=== PATIENT | female | born 1955 | race Caucasian/White ===

== ENCOUNTER 2019-07-09 20:08 | Observation (INO) | payer OTHER ==
[~2019-07-09] VITALS: Ht 162.6 cm; Wt 86.2 kg
[2019-07-09 21:32] LABS: BASOPHILS ABSOLUTE AUTO 0.05 K/mm3 (0.00-0.23); BASOPHILS PERCENT AUTO 1 % (0-2); EOSINOPHILS ABSOLUTE AUTO 0.09 K/mm3 (0.00-0.68); EOSINOPHILS PERCENT AUTO 1 % (0-6); Hematocrit 36.2 % (33.0-51.0); Hemoglobin 12.1 g/dL (11.5-16.0); IMMATURE GRAN ABSOLUTE AUTO 0.03 K/mm3 (0.00-0.10); IMMATURE GRAN PERCENT AUTO 0 % (0-1); LYMPHOCYTES ABSOLUTE AUTO 3.13 K/mm3 (0.84-5.20); LYMPHOCYTES PERCENT AUTO 45 % (21-46); MONOCYTES ABSOLUTE AUTO 0.58 K/mm3 (0.16-1.47); MONOCYTES PERCENT AUTO 8 % (4-13); Mean Corpuscular HGB 31.3 pg (26.0-34.0); Mean Corpuscular HGB Conc 33.4 g/dL (31.5-36.5); Mean Corpuscular Volume 94 fL (80-100); NEUTROPHILS PERCENT AUTO 45 % (41-73); Platelet Count 234 K/mm3 (150-400); RDW Coefficient Variation 13.4 % (11.7-14.2); RDW Standard Deviation 45.6 fL (35.1-46.3); Red Blood Cell Count 3.86 M/mm3 (3.80-5.20); White Blood Cell Count 6.98 K/mm3 (4.00-11.30)
[2019-07-09 21:54] LABS: Alanine Aminotransfer (ALT/SGP 13 U/L (12-78); Albumin, Blood 3.6 g/dL (3.4-5.0); Alk Phos 60 U/L (50-136); Anion Gap 12 mmol/L (6-16); Aspartate Aminotrans (AST/SGOT 17 U/L (12-37); Bilirubin, Total 0.3 mg/dL (0.1-1.0); Blood Urea Nitrogen 7 mg/dL (8-24); Bun/Creatinine Ratio 9.5 (12.0-20.0); CO2, Blood 20 mmol/L (21-32); Calcium, Blood 8.1 mg/dL (8.5-10.1); Chloride, Blood 105 mmol/L (98-108); Creatinine, Blood 0.74 mg/dL (0.40-1.00); Ethanol (Alcohol), Blood, Med 208 mg/dL; Globulin, Blood 3.7 g/dL (2.2-4.0); Glomerular Filtration Rate >60 (60-); Glucose, Blood 110 mg/dL (70-99); Potassium, Blood 4.4 mmol/L (3.5-5.5); Salicylate 4.1 mg/dL (2.8-20.0); Sodium, Blood 137 mmol/L (136-145); Total Protein, Blood 7.3 g/dL (6.4-8.2)
[2019-07-09 22:00] LABS: Acetaminophen, Random <2.0 ug/mL (10.0-30.0)
[2019-07-09] MEDS ORDERED: BUDE6HFA (22:57)
[2019-07-09] MEDS ORDERED: ALBU90OI INH (22:58)
[2019-07-10 00:02] LABS: Source, Urine Clean Catch
[2019-07-10 00:06] LABS: Bilirubin, Urine Neg (Neg); Blood, Urine Neg (Neg); Glucose Qualitative, Urine Neg (Neg); Ketones, Urine Neg (Neg); Leukocyte Esterase, Urine 2+ (Neg); Nitrite, Urine Neg (Neg); Protein, Urine Neg (Neg); Urobilinogen, Urine NORM (Normal)
[2019-07-10 00:09] LABS: Appearance, Urine Clear (Clear); Color, Urine Yellow (P-Yellow)
[2019-07-10 00:11] LABS: Red Blood Cells, Urine 0-2 /hpf (0-2); Squamous Epithelial Cells Few /hpf (Few)
[2019-07-10 00:12] LABS: Bacteria Few /hpf
[2019-07-10 00:16] LABS: U Amphetamine Screen Not Detected; U Barbituate Screen Not Detected; U Benzodiazapine Screen Not Detected; U Buprenorphine Screen Not Detected; U Cannabinoids Screen Not Detected; U Cocaine Screen Not Detected; U Methadone Screen Not Detected; U Methamphetamine Screen Not Detected; U Opiates Screen Not Detected; U Oxycodone Screen Not Detected; U Phencyclidine Screen Not Detected; U Propoxyphene Screen Not Detected
[2019-07-11] MEDS ORDERED: FLUO10 PO (11:21)
[2019-07-11] MEDS ORDERED: LEVSOD25 PO (11:21)
[2019-07-11] MEDS ORDERED: CYCL10 PO (11:21)
[2019-07-11] MEDS ORDERED: METO100ER PO (11:22)
[2019-07-11] MEDS ORDERED: BUDE10.22 INH (11:26)
== END 2019-07-11 11:00 | disposition home or self-care (01) ==
LOC: ER 20:08 → EOR 20:09
PROVIDERS: ADMIT Emergency Medicine
DX: F33.2 Major depressive disorder, recurrent severe without psychotic features (principal); F17.210 Nicotine dependence, cigarettes, uncomplicated
CPT/HCPCS: 80053; 81001; 81025; 84443; 85025; 87086; 94640; 96372; 99285-25; G0378; G0480; J1200; J1630; J2060; Q3014

== ENCOUNTER 2020-03-12 06:45 | Day surgery (SDC) | payer OTHER ==
[~2020-03-12 06:45] MED LIST: ALBU90OI INH; BUDE10.22 INH; BUDE6HFA; CYCL10 PO; FLUO10 PO; LEVSOD25 PO; METO100ER PO
== END 2020-03-12 22:40 | disposition home or self-care (01) ==
LOC: MOI US 06:45 → US 07:15 → MOI US 07:15 → MOI MAM 08:00 → MOI US 08:00 → MOI MAM 08:45 → MOI US 09:00
DX: C50.911 Malignant neoplasm of unspecified site of right female breast (principal)
CPT/HCPCS: 19285; 77065

== ENCOUNTER 2020-09-15 19:38 | Emergency (ER) | payer OTHER ==
[~2020-09-15] VITALS: Ht 157.5 cm; Wt 102.1 kg
[2020-09-15 20:00] LABS: BASOPHILS ABSOLUTE AUTO 0.03 K/mm3 (0.00-0.23); BASOPHILS PERCENT AUTO 0 % (0-2); EOSINOPHILS PERCENT AUTO 1 % (0-6); Hematocrit 36.7 % (33.0-51.0); Hemoglobin 12.1 g/dL (11.5-16.0); IMMATURE GRAN ABSOLUTE AUTO 0.03 K/mm3 (0.00-0.10); IMMATURE GRAN PERCENT AUTO 0 % (0-1); LYMPHOCYTES ABSOLUTE AUTO 1.93 K/mm3 (0.84-5.20); LYMPHOCYTES PERCENT AUTO 25 % (21-46); MONOCYTES PERCENT AUTO 12 % (4-13); Mean Corpuscular HGB 31.4 pg (26.0-34.0); Mean Corpuscular Volume 95 fL (80-100); Mean Platelet Volume 9.5 fL (9.1-12.4); NEUTROPHILS PERCENT AUTO 62 % (41-73); Platelet Count 177 K/mm3 (150-400); RDW Standard Deviation 52.1 fL (35.1-46.3); Red Blood Cell Count 3.85 M/mm3 (3.80-5.20); White Blood Cell Count 7.79 K/mm3 (4.00-11.30)
[2020-09-15 20:16] LABS: Alanine Aminotransfer (ALT/SGP 23 U/L (12-78); Albumin, Blood 3.5 g/dL (3.4-5.0); Alk Phos 71 U/L (50-136); Anion Gap 11 mmol/L (6-16); Aspartate Aminotrans (AST/SGOT 20 U/L (12-37); Bilirubin, Total 0.3 mg/dL (0.1-1.0); Blood Urea Nitrogen 12 mg/dL (8-24); Bun/Creatinine Ratio 16.7 (12.0-20.0); CO2, Blood 21 mmol/L (21-32); Chloride, Blood 107 mmol/L (98-108); Creatinine, Blood 0.72 mg/dL (0.40-1.00); Ethanol (Alcohol), Blood, Med 290 mg/dL; Globulin, Blood 3.6 g/dL (2.2-4.0); Glomerular Filtration Rate >60 (60-); Glucose, Blood 104 mg/dL (70-99); Potassium, Blood 3.6 mmol/L (3.5-5.5); Salicylate 4.7 mg/dL (2.8-20.0); Sodium, Blood 139 mmol/L (136-145); Total Protein, Blood 7.1 g/dL (6.4-8.2)
[2020-09-15 20:19] LABS: Acetaminophen, Random <2.0 ug/mL (10.0-30.0)
[2020-09-15 21:20] LABS: Source, Urine Catheter
[2020-09-15 21:22] LABS: Bilirubin, Urine Neg (Neg); Blood, Urine Neg (Neg); Glucose Qualitative, Urine Neg (Neg); Ketones, Urine Neg (Neg); Leukocyte Esterase, Urine Neg (Neg); Nitrite, Urine Neg (Neg); Protein, Urine Neg (Neg); Urobilinogen, Urine NORM (Normal)
[2020-09-15 21:31] LABS: Appearance, Urine Clear (Clear); Color, Urine Yellow (P-Yellow)
[2020-09-15 21:33] LABS: U Amphetamine Screen Not Detected; U Barbituate Screen Not Detected; U Benzodiazapine Screen Not Detected; U Buprenorphine Screen Not Detected; U Cannabinoids Screen Not Detected; U Cocaine Screen Not Detected; U Methadone Screen Not Detected; U Methamphetamine Screen Not Detected; U Opiates Screen Not Detected; U Oxycodone Screen Not Detected; U Phencyclidine Screen Not Detected; U Propoxyphene Screen Not Detected
== END 2020-09-15 22:08 | disposition home or self-care (01) ==
LOC: ER 19:38
PROVIDERS: Emergency Medicine
DX: F10.129 Alcohol abuse with intoxication, unspecified (principal); F32.9 Major depressive disorder, single episode, unspecified; I10 Essential (primary) hypertension; E03.9 Hypothyroidism, unspecified; J45.909 Unspecified asthma, uncomplicated; Z88.5 Allergy status to narcotic agent; Z79.51 Long term (current) use of inhaled steroids; Z79.899 Other long term (current) drug therapy
CPT/HCPCS: 36415; 70450; 80053; 81003; 85025; 99284-25; G0480; P9612

== ENCOUNTER 2020-12-22 20:51 | Emergency (ER) | payer MEDICARE, OTHER ==
[~2020-12-22] VITALS: Ht 162.6 cm; Wt 90.7 kg
[2020-12-22 21:51] LABS: BASOPHILS ABSOLUTE AUTO 0.04 K/mm3 (0.00-0.23); BASOPHILS PERCENT AUTO 1 % (0-2); EOSINOPHILS PERCENT AUTO 1 % (0-6); Hematocrit 41.6 % (33.0-51.0); Hemoglobin 14.3 g/dL (11.5-16.0); IMMATURE GRAN ABSOLUTE AUTO 0.03 K/mm3 (0.00-0.10); IMMATURE GRAN PERCENT AUTO 0 % (0-1); LYMPHOCYTES ABSOLUTE AUTO 2.63 K/mm3 (0.84-5.20); LYMPHOCYTES PERCENT AUTO 36 % (21-46); MONOCYTES PERCENT AUTO 11 % (4-13); Mean Corpuscular HGB 32.2 pg (26.0-34.0); Mean Corpuscular HGB Conc 34.4 g/dL (31.5-36.5); Mean Corpuscular Volume 94 fL (80-100); Mean Platelet Volume 9.6 fL (9.1-12.4); NEUTROPHILS ABSOLUTE AUTO 3.75 K/mm3 (1.96-9.15); NEUTROPHILS PERCENT AUTO 51 % (41-73); Platelet Count 235 K/mm3 (150-400); RDW Coefficient Variation 13.7 % (11.7-14.2); RDW Standard Deviation 47.6 fL (35.1-46.3); Red Blood Cell Count 4.44 M/mm3 (3.80-5.20); White Blood Cell Count 7.35 K/mm3 (4.00-11.30)
[2020-12-22 22:03] LABS: Alanine Aminotransfer (ALT/SGP 48 U/L (12-78); Albumin, Blood 3.8 g/dL (3.4-5.0); Albumin/Globulin Ratio 0.9 (0.8-1.8); Alk Phos 59 U/L (50-136); Anion Gap 15 mmol/L (6-16); Aspartate Aminotrans (AST/SGOT 32 U/L (12-37); Bilirubin, Total 0.4 mg/dL (0.1-1.0); Blood Urea Nitrogen 8 mg/dL (8-24); CO2, Blood 16 mmol/L (21-32); Calcium, Blood 9.2 mg/dL (8.5-10.1); Chloride, Blood 101 mmol/L (98-108); Creatinine, Blood 0.61 mg/dL (0.40-1.00); Globulin, Blood 4.1 g/dL (2.2-4.0); Glomerular Filtration Rate >60 (60-); Glucose, Blood 107 mg/dL (70-99); Magnesium, Blood 2.2 mg/dL (1.6-2.4); Potassium, Blood 3.7 mmol/L (3.5-5.5); Sodium, Blood 132 mmol/L (136-145); Total Protein, Blood 7.9 g/dL (6.4-8.2)
== END 2020-12-22 23:49 | disposition home or self-care (01) ==
LOC: ER 20:51
PROVIDERS: Physician Assistant
DX: M25.552 Pain in left hip (principal); I10 Essential (primary) hypertension; E03.9 Hypothyroidism, unspecified; J45.909 Unspecified asthma, uncomplicated; F17.210 Nicotine dependence, cigarettes, uncomplicated
CPT/HCPCS: 36415; 72100; 73522; 80053; 83735; 85025; 96374; 96375; 99284-25; A9270; J1170; J1885; J2405; J7030

== ENCOUNTER 2021-12-05 19:42 | Observation (INO) | payer MEDICARE, OTHER ==
[~2021-12-05] VITALS: Ht 165.1 cm; Wt 88.5 kg
[2021-12-05 20:24] LABS: BASOPHILS ABSOLUTE AUTO 0.06 K/mm3 (0.00-0.23); BASOPHILS PERCENT AUTO 1 % (0-2); EOSINOPHILS PERCENT AUTO 5 % (0-6); Hematocrit 37.8 % (33.0-51.0); Hemoglobin 12.6 g/dL (11.5-16.0); IMMATURE GRAN ABSOLUTE AUTO 0.04 K/mm3 (0.00-0.10); IMMATURE GRAN PERCENT AUTO 1 % (0-1); LYMPHOCYTES ABSOLUTE AUTO 2.51 K/mm3 (0.84-5.20); LYMPHOCYTES PERCENT AUTO 29 % (21-46); MONOCYTES ABSOLUTE AUTO 0.67 K/mm3 (0.16-1.47); MONOCYTES PERCENT AUTO 8 % (4-13); Mean Corpuscular HGB Conc 33.3 g/dL (31.5-36.5); Mean Corpuscular Volume 93 fL (80-100); Mean Platelet Volume 11.6 fL (9.1-12.4); NEUTROPHILS ABSOLUTE AUTO 5.03 K/mm3 (1.96-9.15); NEUTROPHILS PERCENT AUTO 58 % (41-73); Platelet Count 188 K/mm3 (150-400); RDW Coefficient Variation 14.2 % (11.7-14.2); RDW Standard Deviation 48.6 fL (35.1-46.3); Red Blood Cell Count 4.06 M/mm3 (3.80-5.20); White Blood Cell Count 8.71 K/mm3 (4.00-11.30)
[2021-12-05 20:42] LABS: Ethanol (Alcohol), Blood, Med 126 mg/dL; Salicylate 3.3 mg/dL (2.8-20.0)
[2021-12-05 20:49] LABS: Acetaminophen, Random <2.0 ug/mL (10.0-30.0); Alanine Aminotransfer (ALT/SGP 22 U/L (12-78); Albumin, Blood 3.2 g/dL (3.4-5.0); Albumin/Globulin Ratio 0.9 (0.8-1.8); Alk Phos 56 U/L (50-136); Anion Gap 7 mmol/L (6-16); Aspartate Aminotrans (AST/SGOT 32 U/L (12-37); Bilirubin, Total 0.4 mg/dL (0.1-1.0); Blood Urea Nitrogen 8 mg/dL (8-24); Bun/Creatinine Ratio 12.8 (12.0-20.0); CO2, Blood 20 mmol/L (21-32); Calcium, Blood 8.3 mg/dL (8.5-10.1); Chloride, Blood 106 mmol/L (98-108); Creatinine, Blood 0.63 mg/dL (0.40-1.00); Globulin, Blood 3.6 g/dL (2.2-4.0); Glomerular Filtration Rate >60 (60-); Glucose, Blood 106 mg/dL (70-99); Sodium, Blood 133 mmol/L (136-145); Total Protein, Blood 6.8 g/dL (6.4-8.2)
[2021-12-05 21:07] LABS: Source, Urine Clean Catch
[2021-12-05 21:13] LABS: Appearance, Urine Clear (Clear); Bilirubin, Urine Neg (Neg); Blood, Urine Neg (Neg); Glucose Qualitative, Urine Neg (Neg); Ketones, Urine Neg (Neg); Leukocyte Esterase, Urine Neg (Neg); Nitrite, Urine Neg (Neg); Protein, Urine Neg (Neg); Urobilinogen, Urine NORM (Normal)
[2021-12-05 21:25] LABS: Color, Urine Pale Yellow (P-Yellow); U Amphetamine Screen Not Detected; U Barbituate Screen Not Detected; U Benzodiazapine Screen Not Detected; U Buprenorphine Screen Not Detected; U Cannabinoids Screen Not Detected; U Cocaine Screen Not Detected; U Methadone Screen Not Detected; U Methamphetamine Screen Not Detected; U Opiates Screen Not Detected; U Oxycodone Screen Not Detected; U Phencyclidine Screen Not Detected; U Propoxyphene Screen Not Detected
[2021-12-05 22:04] LABS: Adenovirus Not Detected (NOT DETECT); Bordetella pertussis Not Detected (NOT DETECT); Chlamydophila pneumoniae Not Detected (NOT DETECT); Coronavirus 229E Not Detected (NOT DETECT); Coronavirus HKU1 Not Detected (NOT DETECT); Coronavirus NL63 Not Detected (NOT DETECT); Coronavirus OC43 Not Detected (NOT DETECT); Human Metapneumovirus Not Detected (NOT DETECT); Human Rhinovirus/Enterovirus Not Detected (NOT DETECT); Influenza A/2009-H1 Not Detected (NOT DETECT); Influenza A/H1 Not Detected (NOT DETECT); Influenza A/H3 Not Detected (NOT DETECT); Influenza B Not Detected (NOT DETECT); Mycoplasma pneumoniae Not Detected (NOT DETECT); Parainfluenza Virus 1 Not Detected (NOT DETECT); Parainfluenza Virus 2 Not Detected (NOT DETECT); Parainfluenza Virus 3 Not Detected (NOT DETECT); Parainfluenza Virus 4 Not Detected (NOT DETECT); Respiratory Syncytial Virus Not Detected (NOT DETECT); SARS-Cov-2 (COVID-19), BioFire Not Detected (NOT DETECT)
== END 2021-12-06 15:51 ==
LOC: ER 19:42 → EOR 19:43
PROVIDERS: ADMIT Emergency Medicine
DX: F33.9 Major depressive disorder, recurrent, unspecified (principal); T43.222A Poisoning by selective serotonin reuptake inhibitors, intentional self-harm, initial encounter; I10 Essential (primary) hypertension; E03.9 Hypothyroidism, unspecified; J45.909 Unspecified asthma, uncomplicated; E87.1 Hypo-osmolality and hyponatremia; F17.210 Nicotine dependence, cigarettes, uncomplicated; Z88.5 Allergy status to narcotic agent; Z20.822 Contact with and (suspected) exposure to COVID-19
CPT/HCPCS: 0202U; 51701; 80053; 81003; 85025; 93005; 93010; 99285-25; G0378; G0480; Q3014

== ENCOUNTER 2022-04-10 21:18 | Emergency (ER) | payer OTHER, MEDICARE ==
[~2022-04-10] VITALS: Ht 167.6 cm; Wt 81.7 kg
== END 2022-04-11 00:08 | disposition home or self-care (01) ==
LOC: ER 21:18
DX: S96.912A Strain of unspecified muscle and tendon at ankle and foot level, left foot, initial encounter (principal); S70.02XA Contusion of left hip, initial encounter; F10.129 Alcohol abuse with intoxication, unspecified; J45.909 Unspecified asthma, uncomplicated; E03.9 Hypothyroidism, unspecified; I10 Essential (primary) hypertension; F41.8 Other specified anxiety disorders; Z79.899 Other long term (current) drug therapy; Z88.5 Allergy status to narcotic agent; Z72.0 Tobacco use; W18.30XA Fall on same level, unspecified, initial encounter; Y92.511 Restaurant or cafe as the place of occurrence of the external cause
CPT/HCPCS: 73502; 73610; 99283-25

== ENCOUNTER 2022-12-21 14:26 | Emergency (ER) | payer MEDICARE, OTHER ==
[~2022-12-21] VITALS: Ht 167.6 cm; Wt 74.8 kg
[2022-12-21 15:25] LABS: BASOPHILS ABSOLUTE AUTO 0.04 K/mm3 (0.00-0.23); BASOPHILS PERCENT AUTO 0 % (0-2); EOSINOPHILS PERCENT AUTO 2 % (0-6); Hematocrit 36.9 % (33.0-51.0); Hemoglobin 12.6 g/dL (11.5-16.0); IMMATURE GRAN ABSOLUTE AUTO 0.04 K/mm3 (0.00-0.10); IMMATURE GRAN PERCENT AUTO 0 % (0-1); LYMPHOCYTES ABSOLUTE AUTO 1.22 K/mm3 (0.84-5.20); LYMPHOCYTES PERCENT AUTO 13 % (21-46); MONOCYTES ABSOLUTE AUTO 0.74 K/mm3 (0.16-1.47); MONOCYTES PERCENT AUTO 8 % (4-13); Mean Corpuscular HGB 29.9 pg (26.0-34.0); Mean Corpuscular HGB Conc 34.1 g/dL (31.5-36.5); Mean Corpuscular Volume 87 fL (80-100); Mean Platelet Volume 10.9 fL (9.1-12.4); NEUTROPHILS PERCENT AUTO 77 % (41-73); Platelet Count 232 K/mm3 (150-400); Red Blood Cell Count 4.22 M/mm3 (3.80-5.20); White Blood Cell Count 9.74 K/mm3 (4.00-11.30)
[2022-12-21 15:42] LABS: Albumin, Blood 3.5 g/dL (3.4-5.0); Bilirubin, Total 0.3 mg/dL (0.1-1.0); Bun/Creatinine Ratio 14.3 (12.0-20.0); Calcium, Blood 9.5 mg/dL (8.5-10.1); Creatinine, Blood 0.91 mg/dL (0.40-1.00); Globulin, Blood 3.6 g/dL (2.2-4.0); Potassium, Blood 3.6 mmol/L (3.5-5.5); Total Protein, Blood 7.1 g/dL (6.4-8.2)
[2022-12-21] MEDS ORDERED: AMOCLA875 PO (16:47)
[2022-12-21] MEDS ORDERED: ONDA4 PO (16:47)
== END 2022-12-21 17:18 | disposition home or self-care (01) ==
LOC: ER 14:26
PROVIDERS: Emergency Medicine
DX: J44.1 Chronic obstructive pulmonary disease with (acute) exacerbation (principal); K52.9 Noninfective gastroenteritis and colitis, unspecified; I10 Essential (primary) hypertension; E03.9 Hypothyroidism, unspecified; F17.210 Nicotine dependence, cigarettes, uncomplicated; Z88.5 Allergy status to narcotic agent; Z79.890 Hormone replacement therapy; Z79.899 Other long term (current) drug therapy
CPT/HCPCS: 36415; 74176; 80053; 83690; 85025; 94640; 94664; A9270

== ENCOUNTER 2023-06-19 12:58 | Emergency (ER) | payer MEDICARE, OTHER ==
[~2023-06-19] VITALS: Ht 162.6 cm; Wt 90.3 kg
[~2023-06-19 12:58] MED LIST changes: +AMOCLA875 PO; +ONDA4 PO
[2023-06-19 15:33] VITALS: BP 122/72
[2023-06-19] MEDS ORDERED: GABA300 PO (16:04)
[2023-06-19] MEDS ORDERED: HYDR1TAB94 PO (16:04)
[2023-06-19] MEDS ORDERED: METPRE4DP PO (16:04)
== END 2023-06-19 17:15 | disposition home or self-care (01) ==
LOC: ER 12:58
DX: M54.17 Radiculopathy, lumbosacral region (principal); F17.210 Nicotine dependence, cigarettes, uncomplicated; Z88.5 Allergy status to narcotic agent; Z79.890 Hormone replacement therapy; Z79.899 Other long term (current) drug therapy; I10 Essential (primary) hypertension; E03.9 Hypothyroidism, unspecified
CPT/HCPCS: 72100; 96374; 96375; 99284-25; J1100; J1885; J3010

== ENCOUNTER 2024-05-24 14:09 | Emergency (ER) | payer MEDICARE, OTHER ==
[~2024-05-24] VITALS: Ht 162.6 cm; Wt 93.0 kg
[~2024-05-24 14:09] MED LIST changes: +ASPI81CH PO; +BUDESONIDE-FO10.2 G3 IH; +CLOP75 PO; +EZET10 PO; +FOLI1 PO; +GABA300 PO; +HYDR1TAB94 PO; -LEVSOD25 PO; +LEVSOD75 PO; +LIPITOR80 MG PO; +METPRE4DP PO; +MIRTAZAPINE7.5 M1 PO; +TIZANIDINE HCL213 PO; +VENLAFAXINE HC225 MG PO
[2024-05-24 14:47] LABS: BASOPHILS ABSOLUTE AUTO 0.05 K/mm3 (0.00-0.23); BASOPHILS PERCENT AUTO 1 % (0-2); EOSINOPHILS PERCENT AUTO 6 % (0-6); Hematocrit 35.8 % (33.0-51.0); Hemoglobin 12.3 g/dL (11.5-16.0); IMMATURE GRAN ABSOLUTE AUTO 0.03 K/mm3 (0.00-0.10); IMMATURE GRAN PERCENT AUTO 0 % (0-1); LYMPHOCYTES ABSOLUTE AUTO 2.83 K/mm3 (0.84-5.20); LYMPHOCYTES PERCENT AUTO 31 % (21-46); MONOCYTES ABSOLUTE AUTO 0.76 K/mm3 (0.16-1.47); MONOCYTES PERCENT AUTO 8 % (4-13); Mean Corpuscular HGB 29.4 pg (26.0-34.0); Mean Corpuscular HGB Conc 34.4 g/dL (31.5-36.5); Mean Corpuscular Volume 85 fL (80-100); Mean Platelet Volume 10.3 fL (9.1-12.4); NEUTROPHILS PERCENT AUTO 55 % (41-73); Platelet Count 260 K/mm3 (150-400); RDW Coefficient Variation 14.2 % (11.7-14.2); RDW Standard Deviation 44.1 fL (35.1-46.3); Red Blood Cell Count 4.19 M/mm3 (3.80-5.20); White Blood Cell Count 9.17 K/mm3 (4.00-11.30)
[2024-05-24 15:19] LABS: Albumin, Blood 3.6 g/dL (3.4-5.0); Albumin/Globulin Ratio 0.9 (0.8-1.8); Bilirubin, Total 0.4 mg/dL (0.1-1.0); Bun/Creatinine Ratio 16.2 (12.0-20.0); Calcium, Blood 9.5 mg/dL (8.5-10.1); Creatinine, Blood 0.74 mg/dL (0.40-1.00); Globulin, Blood 3.9 g/dL (2.2-4.0); Potassium, Blood 4.1 mmol/L (3.5-5.5); Total Protein, Blood 7.5 g/dL (6.4-8.2)
[2024-05-24 17:20] VITALS: BP 141/84
== END 2024-05-24 18:42 | disposition home or self-care (01) ==
LOC: ER 14:09
PROVIDERS: Emergency Medicine
DX: R07.2 Precordial pain (principal); I10 Essential (primary) hypertension; I25.2 Old myocardial infarction; J45.909 Unspecified asthma, uncomplicated; E03.9 Hypothyroidism, unspecified; Z87.891 Personal history of nicotine dependence; Z79.899 Other long term (current) drug therapy; Z79.890 Hormone replacement therapy; Z79.82 Long term (current) use of aspirin; Z88.5 Allergy status to narcotic agent; Z88.8 Allergy status to other drugs, medicaments and biological substances
CPT/HCPCS: 71046; 80053; 84484; 85025; 93005; 93010; 99285-25

== ENCOUNTER 2024-09-21 15:38 | Observation (INO) | payer MEDICARE, OTHER ==
[~2024-09-21] VITALS: Ht 165.1 cm; Wt 94.3 kg
[2024-09-21] MEDS ORDERED: Nitroglycerin 0.4 MG SUBL SL ONE (17:50)
[2024-09-21 17:57] LABS: Albumin, Blood 3.3 g/dL (3.4-5.0); Albumin/Globulin Ratio 0.9 (0.8-1.8); Bilirubin, Total 0.4 mg/dL (0.1-1.0); Calcium, Blood 9.2 mg/dL (8.5-10.1); Creatinine, Blood 0.67 mg/dL (0.40-1.00); Globulin, Blood 3.5 g/dL (2.2-4.0); Potassium, Blood 3.8 mmol/L (3.5-5.5); Total Protein, Blood 6.8 g/dL (6.4-8.2)
[2024-09-21 18:07] LABS: BASOPHILS ABSOLUTE AUTO 0.06 K/mm3 (0.00-0.23); BASOPHILS PERCENT AUTO 1 % (0-2); EOSINOPHILS ABSOLUTE AUTO 0.23 K/mm3 (0.00-0.68); EOSINOPHILS PERCENT AUTO 3 % (0-6); Hemoglobin 11.7 g/dL (11.5-16.0); IMMATURE GRAN ABSOLUTE AUTO 0.08 K/mm3 (0.00-0.10); IMMATURE GRAN PERCENT AUTO 1 % (0-1); LYMPHOCYTES ABSOLUTE AUTO 1.67 K/mm3 (0.84-5.20); LYMPHOCYTES PERCENT AUTO 22 % (21-46); MONOCYTES ABSOLUTE AUTO 0.71 K/mm3 (0.16-1.47); MONOCYTES PERCENT AUTO 10 % (4-13); Mean Corpuscular HGB 30.2 pg (26.0-34.0); Mean Corpuscular HGB Conc 34.4 g/dL (31.5-36.5); Mean Corpuscular Volume 88 fL (80-100); NEUTROPHILS ABSOLUTE AUTO 4.69 K/mm3 (1.96-9.15); NEUTROPHILS PERCENT AUTO 63 % (41-73); NRBC ABSOLUTE 0.02 K/mm3 (0.00-0.02); NRBC Auto 0.3 /100 WBC (0.0-0.2); RDW Coefficient Variation 13.9 % (11.7-14.2); RDW Standard Deviation 44.4 fL (35.1-46.3); Red Blood Cell Count 3.88 M/mm3 (3.80-5.20); White Blood Cell Count 7.44 K/mm3 (4.00-11.30)
[2024-09-21] MEDS ORDERED: Albuterol 2.5 MG/3 ML VIAL INH PRN (19:50)
[2024-09-21] MEDS ORDERED: Metoprolol Succinate 50 MG TABCR PO SCH (21:00)
[2024-09-21] MEDS ORDERED: Mirtazapine 15 MG Tab PO SCH (21:00)
[2024-09-21] MEDS ORDERED: Ezetimibe 10 MG Tab PO SCH (21:00)
[2024-09-21] MEDS ORDERED: Ondansetron HCl 2 MG / ML 2ML Vial IV PRN (21:40)
[2024-09-21] MEDS ORDERED: Mometasone/Formoterol MDI 200/5 mcg 13 GM INH SCH (21:40)
[2024-09-21] MEDS ORDERED: FLU VACC TS2024-25(6MOS UP)/PF 45 MCG/0.5 ML SYRINGE IM ONE ×2 (21:45→23:00)
[2024-09-21] MEDS ORDERED: NS 1,000 ML IV SCH (21:45)
[2024-09-21 23:16] VITALS: BP 129/77
--- NOTE | 2024-09-21 23:33 | NUR ---
ADMIT NOTE 68 YR OLD FEMALE ADMITTED TO FLOOR FROM THE ED WITH DX OF CHEST PAIN. ED REPORTED PT CAME IN VIA AMBULANCE WITH 1:10 CP AND HAD RECEIEVD NITRO TWICE IN THE AMBULANCE AND ONCE IN THE ED. CP DECREASED, DID THE TROP LEVELS. DENIES CURRENT CP. ALERT AND OREINTED X 4. ORIENTED TO USE OF CALL LIGHT, AGREES TO USE IT IF NEED TO GET OOB. HANDS COOL TO TOUCH. WARM BLANKET APPLIED. VSS. TO BE PLACED ON [employer] AND PT NOW REQUESTS FULL CODE STATUS. WILL CALL MD WITH SAID REQUEST. CALL LIGHT IN REACH
[2024-09-21 23:41] VITALS: BP 130/77
[2024-09-22] MEDS ORDERED: CILOSTAZOL PO (00:12)
[2024-09-22] MEDS ORDERED: LETROZOLE2.5 M3 PO (00:20)
[2024-09-22] MEDS ORDERED: FLUTICASONE-SAL12 G1 INH (00:20)
[2024-09-22] MEDS ORDERED: FAMO20 PO (00:22)
[2024-09-22 03:55] VITALS: BP 103/53
--- NOTE | 2024-09-22 03:59 | NUR ---
ESCORT BLIND SUMMARY VSS. ADMITTED EARLIER IN THE SHIFT WITH DX OF CHEST PAIN FROM THE ED. HAS BEEN RESTING QUIETLY WITH FEW INTERRUPTIONS. IVF OF NS INFUSING AT 100 ML/HR. ORIENTED X 4 AND UP AITH ASSIST/WALKER. DENIED CHEST PAIN SINCE ADMISSION TO FLOOR. ABLE TO RSPOSITION SELF IN BED WITHOUT ASSIST FOR COMFORT. CALL LIGHT IN REACH, RAILS UP X 2 AND BED IN LOW POSITION FOR SAFETY. [place] SR AT 88. WILL CONTINUE TO MONITOR
[2024-09-22] MEDS ORDERED: Levothyroxine Sodium 0.075 MG Tab PO SCH (06:00)
[2024-09-22 07:19] VITALS: BP 118/75
[2024-09-22] MEDS ORDERED: Nicotine 21 MG PATCH TOP SCH (09:00)
[2024-09-22] MEDS ORDERED: Clopidogrel Bisulfate 75 MG Tab PO SCH (09:00)
[2024-09-22] MEDS ORDERED: Aspirin 81 MG Chew PO SCH (09:00)
[2024-09-22] MEDS ORDERED: Enoxaparin 40 MG/0.4 ML SYR SC SCH ×2 (09:00)
[2024-09-22] MEDS ORDERED: Venlafaxine HCl 75 MG CapCR PO SCH (09:00)
[2024-09-22] MEDS ORDERED: Atorvastatin 40 MG Tab PO SCH (09:00)
[2024-09-22] MEDS ORDERED: Imdur-ER60 MG PO (13:00)
[2024-09-22] MEDS ORDERED: NICO21TP TOP (13:00)
--- NOTE | 2024-09-22 13:54 | NUR ---
DISCHARGE NOTE: WENT OVER DISCHARGE WITH PATIENT. HER IV AND TELE WERE REMOVED. SHE WAS ABLE TO SELF TRANSFER TO WHEELCHAIR AND WAS WHEELED DOWN TO [facility] BY SECURITY SCREENER. NO SIGNS OR SYMPTOMS OF DISTRESS DURING DISCHARGE.
== END 2024-09-22 13:36 | disposition home or self-care (01) ==
LOC: ER 15:38 → ERHOLD 15:39 → ER 15:39 → MEDS 15:39 → ENPENDDIS 09-22 11:25 → MEDS 09-22 13:36
PROVIDERS: Emergency Medicine; ADMIT Student in an Organized Health Care Education/Training Program
DX: I25.118 Atherosclerotic heart disease of native coronary artery with other forms of angina pectoris (principal); I10 Essential (primary) hypertension; E03.9 Hypothyroidism, unspecified; F32.A Depression, unspecified; J45.909 Unspecified asthma, uncomplicated; Z88.5 Allergy status to narcotic agent; Z88.8 Allergy status to other drugs, medicaments and biological substances; Z79.82 Long term (current) use of aspirin; Z79.899 Other long term (current) drug therapy
CPT/HCPCS: 71046; 80053; 83690; 83880; 84484; 85025; 93005; 93010; 94640; 94664; 94760; 96360; 96361; 99285-25; A9270; G0378; J7030

== ENCOUNTER → 2024-12-22 | Outpatient (CLI) | payer MEDICARE, OTHER ==
[~2024-12-22] MED LIST changes: +CILOSTAZOL PO; +FAMO20 PO; +FLUTICASONE-SAL12 G1 INH; +Imdur-ER60 MG PO; +LETROZOLE2.5 M3 PO; +NICO21TP TOP
[2024-12-22 16:33] LABS: BASOPHILS ABSOLUTE AUTO 0.06 K/mm3 (0.00-0.23); BASOPHILS PERCENT AUTO 1 % (0-2); EOSINOPHILS ABSOLUTE AUTO 0.25 K/mm3 (0.00-0.68); EOSINOPHILS PERCENT AUTO 3 % (0-6); Hematocrit 37.3 % (33.0-51.0); Hemoglobin 12.5 g/dL (11.5-16.0); IMMATURE GRAN ABSOLUTE AUTO 0.03 K/mm3 (0.00-0.10); IMMATURE GRAN PERCENT AUTO 0 % (0-1); LYMPHOCYTES ABSOLUTE AUTO 2.14 K/mm3 (0.84-5.20); LYMPHOCYTES PERCENT AUTO 23 % (21-46); MONOCYTES ABSOLUTE AUTO 0.84 K/mm3 (0.16-1.47); MONOCYTES PERCENT AUTO 9 % (4-13); Mean Corpuscular HGB 29.8 pg (26.0-34.0); Mean Corpuscular HGB Conc 33.5 g/dL (31.5-36.5); Mean Corpuscular Volume 89 fL (80-100); Mean Platelet Volume 10.7 fL (9.1-12.4); NEUTROPHILS ABSOLUTE AUTO 6.04 K/mm3 (1.96-9.15); NEUTROPHILS PERCENT AUTO 65 % (41-73); Platelet Count 322 K/mm3 (150-400); RDW Coefficient Variation 13.9 % (11.7-14.2); RDW Standard Deviation 45.1 fL (35.1-46.3); White Blood Cell Count 9.36 K/mm3 (4.00-11.30)
[2024-12-22 20:52] LABS: Bun/Creatinine Ratio 14.6 (12.0-20.0); Calcium, Blood 10.3 mg/dL (8.5-10.1); Creatinine, Blood 0.75 mg/dL (0.40-1.00); Potassium, Blood 4.3 mmol/L (3.5-5.5)
[2024-12-24 08:33] LABS: HIV 1,2 COMBO ANTIGEN/ANTIBODY Negative (Negative)
== END ==
LOC: LAB 14:29 → LAB SHORT 14:29
PROVIDERS: Nurse Practitioner Family
DX: E53.8 Deficiency of other specified B group vitamins (principal); I10 Essential (primary) hypertension; R73.03 Prediabetes; Z11.4 Encounter for screening for human immunodeficiency virus [HIV]
CPT/HCPCS: 80048; 82607; 82746; 83036; 85025; 87389

== ENCOUNTER → 2025-06-22 | Outpatient (CLI) | payer MEDICARE, OTHER ==
[~2025-06-22] MED LIST changes: +ADVAIR HFA 230-28 GM INH; +B-121000 MC3 PO; +ISOSORBIDE MONO60 MG PO; +TIZANIDINE HCL2 M1 PO; +VITAMIN D5000 UNIT PO
[2025-06-22 17:36] LABS: BASOPHILS ABSOLUTE AUTO 0.06 K/mm3 (0.00-0.23); BASOPHILS PERCENT AUTO 1 % (0-2); EOSINOPHILS ABSOLUTE AUTO 0.38 K/mm3 (0.00-0.68); EOSINOPHILS PERCENT AUTO 4 % (0-6); Hematocrit 35.1 % (33.0-51.0); Hemoglobin 11.6 g/dL (11.5-16.0); IMMATURE GRAN ABSOLUTE AUTO 0.02 K/mm3 (0.00-0.10); IMMATURE GRAN PERCENT AUTO 0 % (0-1); LYMPHOCYTES ABSOLUTE AUTO 2.40 K/mm3 (0.84-5.20); LYMPHOCYTES PERCENT AUTO 27 % (21-46); MONOCYTES ABSOLUTE AUTO 0.81 K/mm3 (0.16-1.47); MONOCYTES PERCENT AUTO 9 % (4-13); Mean Corpuscular HGB Conc 33.0 g/dL (31.5-36.5); Mean Corpuscular Volume 88 fL (80-100); NEUTROPHILS ABSOLUTE AUTO 5.37 K/mm3 (1.96-9.15); NEUTROPHILS PERCENT AUTO 59 % (41-73); NRBC ABSOLUTE 0.00 K/mm3 (0.00-0.02); NRBC Auto 0.0 /100 WBC (0.0-0.2); Platelet Count 274 K/mm3 (150-400); RDW Coefficient Variation 14.3 % (11.7-14.2); RDW Standard Deviation 45.9 fL (35.1-46.3)
[2025-06-22 20:29] LABS: Alanine Aminotransfer (ALT/SGP 17 U/L (12-78); Albumin, Blood 3.6 g/dL (3.4-5.0); Albumin/Globulin Ratio 0.9 (0.8-1.8); Anion Gap 5 mmol/L (3-11); Aspartate Aminotrans (AST/SGOT 12 U/L (12-37); Bilirubin, Total 0.4 mg/dL (0.1-1.0); Blood Urea Nitrogen 13 mg/dL (8-24); CHOL/HDL RATIO 2.5; CO2, Blood 25 mmol/L (21-32); Calcium, Blood 9.7 mg/dL (8.5-10.1); Chloride, Blood 107 mmol/L (98-108); Cholesterol 115 mg/dL (50-200); Creatinine, Blood 0.82 mg/dL (0.40-1.00); Globulin, Blood 3.8 g/dL (2.2-4.0); Glucose, Blood 110 mg/dL (70-99); HDL Cholesterol 46 mg/dL (>39); LDL/HDL RATIO 0.8; Low Density Lipoprotein Chol 37 mg/dL (0-110); Potassium, Blood 4.0 mmol/L (3.5-5.5); Sodium, Blood 133 mmol/L (136-145); Thyroid Stimulating Hormone 1.120 uIU/mL (0.360-4.800); Total Protein, Blood 7.4 g/dL (6.4-8.2); Triglycerides 160 mg/dL (30-160); Very Low Density Lipoprot Chol 32 mg/dL (6-32)
== END ==
LOC: LAB SHORT 15:37 → LAB 15:37
PROVIDERS: Nurse Practitioner Family
DX: I10 Essential (primary) hypertension (principal); I25.10 Atherosclerotic heart disease of native coronary artery without angina pectoris; E03.9 Hypothyroidism, unspecified; R73.03 Prediabetes
CPT/HCPCS: 80053; 80061; 83036; 84443; 85025